=== PATIENT | male | born 1960 | race Caucasian/White ===

== ENCOUNTER 2018-03-30 14:34 | Emergency (ER) | payer SELFPAY ==
[~2018-03-30] VITALS: Ht 182.9 cm; Wt 113.6 kg
[2018-03-30] MEDS ORDERED: SODIUM BICARBONATE [ADULT] 8.4% 50 MEQ/50 ML SYRINGE IVP ONE (14:39)
[2018-03-30] MEDS ORDERED: EPINEPHrine 1:10,000 [1 MG/10 ML] SYRINGE IVP ONE (14:39)
[2018-03-30 14:50] VITALS: BP 0/0
[2018-03-30 15:09] LABS: GLUCOSE,POINT OF CARE 78 MG/DL (70-110)
[2018-03-30] MEDS ORDERED: DABI75CA3 PO (16:35)
[2018-03-30] MEDS ORDERED: WARF1 PO (16:35)
[2018-03-30] MEDS ORDERED: HTN MED PO (16:35)
== END 2018-03-30 19:25 | disposition expired ==
LOC: EMS 14:38 → EDBD 14:38 → EMS 19:25
DX: I46.9 Cardiac arrest, cause unspecified (principal)
CPT/HCPCS: 82962; 92950; 99291; J0171; J3490